=== PATIENT | female | born 1985 | race Caucasian/White ===

== ENCOUNTER 2021-12-05 17:57 | Emergency (ER) | payer SELFPAY ==
[~2021-12-05] VITALS: Ht 157.5 cm; Wt 68.0 kg
[2021-12-05 18:00] VITALS: BP 118/73
--- NOTE | 2021-12-05 18:03 | NUR ---
PT W/C ASSISTED TO ER BED 11
[2021-12-05] MEDS ORDERED: IBUPROFEN 600 MG TAB PO ONE (18:10)
--- NOTE | 2021-12-05 19:02 | NUR ---
36 Y/O FEMALE BIB BOYFRIEND C/O OF LEFT ANKLE PAIN AFTER TRIPPING DOWN THE STAIRS YESTERDAY. PAIN 8/10 TYLENOL TAKEN WITH MINIMAL RELIEF. LEFT ANKLE NOTED WITH REDNESS, BRUISING AND SWELLING. FEET ELEVATED WITH RELIEF. RN CASE MANAGER LESS THAN 3 SEC, PT REFUSES TO MOVE LEG D/T INCREASE IN PAIN. DENIES RADIATING PAIN. RESPIRATIONS EVEN AND UNLABORED. PMH; DENIES NKA
--- NOTE | 2021-12-05 19:04 | NUR ---
RAD AT BEDSIDE
--- NOTE | 2021-12-05 19:25 | NUR ---
Pt report given to [facility] BACK. Transfer of care at this time.
[2021-12-05] MEDS ORDERED: IBUP-2213 PO (19:28)
--- NOTE | 2021-12-05 20:12 | NUR ---
PT REPORTS PAIN IMPROVEMENT TO L ANKLE, W SOME PAIN UPON MOVEMENT. NO OTHER COMPLAINTS. VSS.
[2021-12-05 20:28] VITALS: BP 105/73
--- NOTE | 2021-12-05 20:28 | NUR ---
Patient discharged with v/s stable. Written and verbal after care instructions given and explained. Patient alert, oriented and verbalized understanding of instructions. Ambulatory with CR[facility]CHES. All questions addressed prior to discharge. ID band removed. Patient advised to follow up with PMD. Rx of IBUPROFEN given. Patient educated on indication of medication including possible reaction and side effects. Opportunity to ask questions provided and answered.
== END 2021-12-05 20:28 | disposition home or self-care (01) ==
LOC: MED 17:57
DX: S93.492A Sprain of other ligament of left ankle, initial encounter (principal); X50.0XXA Overexertion from strenuous movement or load, initial encounter; Y93.89 Activity, other specified; Y92.89 Other specified places as the place of occurrence of the external cause; Y99.8 Other external cause status
CPT/HCPCS: 73610; 99283; Q0092